=== PATIENT | female | born 1990 | race Hispanic/Latino ===

== ENCOUNTER 2024-12-07 17:28 | Emergency (ER) | payer SELFPAY ==
[~2024-12-07] VITALS: Ht 167.6 cm; Wt 97.5 kg
[2024-12-07 17:29] VITALS: BP 147/87; PULSE 89; RESP 16; TEMP 98.2
--- NOTE | 2024-12-07 18:22 | NUR ---
CALLED FOR BEDDING. NO ANSWER
--- NOTE | 2024-12-07 18:26 | NUR ---
CALLED FOR BEDDING, NOT IN MAIN ER LOBBY, CHECKED LOBBY BATHROOM, CHECK ER BATHROOMS, FAST TRACK. PATIENT NOT LOCATED. PT DID NOT COMMUNICAATE WITH STAFF ON DESIRE TO LEAVE
--- NOTE | 2024-12-07 18:28 | NUR ---
CALLED NO ANSWER, PROVIDED NORMA REYNOLDS NOTIFIED
== END 2024-12-07 18:29 | disposition left against medical advice (07) ==
LOC: EDH 17:28
DX: M54.50 Low back pain, unspecified (principal); Z53.21 Procedure and treatment not carried out due to patient leaving prior to being seen by health care provider